=== PATIENT | female | born 1960 | race Two or more races ===

== ENCOUNTER 2017-11-03 17:43 | Inpatient (IN) | payer MEDICAID ==
[~2017-11-03] VITALS: Ht 160 cm; Wt 57.0 kg
[2017-11-03] MEDS ORDERED: RISP.5 PO (19:04)
[2017-11-03 19:14] LABS: BASOPHILS % (AUTO) 0.8 % (0.0-2.0); HEMATOCRIT 41.8 % (41-53); HEMOGLOBIN 14.5 g/dL (13.5-17.5); LYMPHOCYTES # (AUTO) 1.8 K/uL (1.0-4.8); LYMPHOCYTES % (AUTO) 26.8 % (22.0-44.0); MEAN CORPUSCULAR HEMOGLOBIN 28.2 pg (26.0-34.0); MEAN CORPUSCULAR HGB CONC 34.6 G/dL (31.0-37.0); MEAN CORPUSCULAR VOLUME 82 fL (80-100); MONOCYTES # (AUTO) 0.5 K/uL (0.1-1.0); MONOCYTES % (AUTO) 7.5 % (2.0-9.0); NEUTROPHILS # (AUTO) 4.3 K/uL (1.8-7.7); NEUTROPHILS % (AUTO) 62.9 % (40.0-70.0); PLATELET COUNT (AUTO) 211 K/uL (150-450); RED BLOOD CELL COUNT(AUTO) 5.12 MIL/uL (4.50-5.90)
[2017-11-03 19:32] LABS: ANION GAP 3 mmol/L (8-16); CALCIUM, TOTAL 9.3 mg/dL (8.8-10.5); CARBON DIOXIDE 32 mmol/L (22-29); CHLORIDE 103 mmol/L (98-107); CREATININE 0.87 mg/dL (0.60-1.30); GLOMERULAR FILTR. RATE CALC > 60 mL/min (>60); GLUCOSE,RANDOM 95 mg/dL (70-110); POTASSIUM 3.5 mmol/L (3.5-5.1); SODIUM SERUM 138 mmol/L (136-145); UREA NITROGEN, BLOOD 19 mg/dL (7-18)
[2017-11-03 19:37] LABS: AMPHET/METH SCREEN,URINE POSITIVE (NEGATIVE); BARBITURATE SCREEN, URINE NEGATIVE (NEGATIVE); BENZODIAZEPINES SCREEN,URINE NEGATIVE (NEGATIVE); CANNABINOID SCREEN,URINE NEGATIVE (NEGATIVE); COCAINE SCREEN,URINE NEGATIVE (NEGATIVE); METHADONE SCREEN, URINE NEGATIVE (NEGATIVE); OPIATE SCREEN,URINE NEGATIVE (NEGATIVE)
[2017-11-03 19:38] LABS: PHENCYCLIDINE SCREEN,URINE NEGATIVE (NEGATIVE)
[2017-11-03 19:38] LABS: ALANINE AMINOTRANSFERASE 42 U/L (12-78); ALBUMIN 3.6 g/dL (3.4-5.0); ALKALINE PHOSPHATASE 112 U/L (46-116); ASPARTATE AMINOTRANSFERASE 22 U/L (15-37); BILIRUBIN,TOTAL 0.6 mg/dL (0.1-1.0); TOTAL PROTEIN, SERUM 6.9 g/dL (6.4-8.2)
[2017-11-03] MEDS ORDERED: HALOPERIDOL 5 MG TABLET PO PRN (21:15)
[2017-11-03] MEDS ORDERED: ZOLPIDEM TARTRATE 10 MG TABLET PO PRN (21:15)
[2017-11-04 02:00] VITALS: BP 106/89
[2017-11-04] MEDS ORDERED: PNEUMOCOCCAL VACCINE POLYVALENT 0.5 ML VIAL [PPSV23] IM ONE (02:00)
[2017-11-04 03:08] LABS: APPEARANCE,URINE CLOUDY (CLEAR); BILIRUBIN,URINE NEGATIVE (NEGATIVE); GLUCOSE, URINE (UA) NEGATIVE (NEGATIVE); KETONES,URINE TRACE mg/dL (NEGATIVE); LEUKOCYTE ESTERASE ,URINE SMALL (NEGATIVE); NITRATE,URINE NEGATIVE (NEGATIVE); OCCULT BLOOD,URINE TRACE (NEGATIVE); PROTEIN,URINE NEGATIVE (NEGATIVE); UROBILINOGEN,URINE 0.2 mg/dL (<=1.0)
[2017-11-04 03:28] LABS: BACTERIA,URINE Few /HPF (None Seen); CALCIUM OXALATE CRYSTALS,UR Rare /LPF (None Seen); SQUAMOUS EPITHELIAL CELL,UR Few /LPF (None Seen)
[2017-11-04] MEDS ORDERED: MAGNESIUM HYDROXIDE SUSPENSION 30 ML UDCUP PO PRN (06:45)
[2017-11-04] MEDS ORDERED: MAG HYDROX/AL HYDROX/SIMETH ES 30 ML SUSPENSION UDCUP PO PRN (06:45)
[2017-11-04] MEDS ORDERED: PETROLATUM,WHITE 71 GM JELLY TP PRN (06:45)
[2017-11-04] MEDS ORDERED: ONDANSETRON HCL 4 MG TABLET PO PRN (06:45)
[2017-11-04] MEDS ORDERED: DOCUSATE SODIUM 100 MG CAPSULE PO PRN (06:45)
[2017-11-04] MEDS ORDERED: ACETAMINOPHEN 325 MG TABLET PO PRN (06:45)
[2017-11-04] MEDS ORDERED: ALBUTEROL SULFATE HFA 90 MCG/PUFF 8 GM INHALER IH PRN (06:45)
[2017-11-04] MEDS ORDERED: CloNIDine HCL 0.1 MG TABLET PO PRN (06:45)
[2017-11-04] MEDS ORDERED: LOPERAMIDE HCL 2 MG CAPSULE PO PRN (06:45)
[2017-11-04 07:28] LABS: CHOL/HDL RATIO 2.7 (3.9-5.7)
[2017-11-04 10:08] VITALS: BP 134/77
[2017-11-04] MEDS: CIPROFLOXACIN HCL 250 MG TABLET PO SCH (17:03)
[2017-11-04] MEDS: RisperiDONE 0.5 MG TABLET PO SCH (17:03)
[2017-11-04 17:22] VITALS: BP 147/75
[2017-11-05] MEDS: LORazepam 2 MG TABLET PO PRN (04:43)
[2017-11-05 06:43] VITALS: BP 143/81
[2017-11-05 07:08] LABS: HEMOGLOBIN A1C 5.7 % (4.5-6.2)
[2017-11-05 07:37] LABS: THYROID STIMULATING HORMONE 1.96 uIU/mL (0.36-3.74)
[2017-11-05 08:00] VITALS: BP 153/84
[2017-11-05] MEDS: RisperiDONE 0.5 MG TABLET PO SCH ×2 (10:33→16:15)
[2017-11-05] MEDS: CIPROFLOXACIN HCL 250 MG TABLET PO SCH ×2 (10:33→16:15)
[2017-11-05 17:02] VITALS: BP 137/80
[2017-11-06 08:00] VITALS: BP 149/99
[2017-11-06] MEDS: CIPROFLOXACIN HCL 250 MG TABLET PO SCH ×2 (10:04→16:38)
[2017-11-06] MEDS: RisperiDONE 0.5 MG TABLET PO SCH ×2 (10:04→16:38)
[2017-11-06 17:05] VITALS: BP 100/74
[2017-11-07 10:01] VITALS: BP 146/83
[2017-11-07] MEDS: IBUPROFEN 400 MG TABLET PO PRN (10:01)
[2017-11-07] MEDS: LORazepam 2 MG TABLET PO PRN (10:01)
[2017-11-07] MEDS: RisperiDONE 0.5 MG TABLET PO SCH ×2 (10:01→17:20)
[2017-11-07] MEDS: CIPROFLOXACIN HCL 250 MG TABLET PO SCH ×2 (10:01→17:20)
[2017-11-07 17:04] VITALS: BP 144/80
[2017-11-08 01:15] VITALS: BP_SYST 121; BP_SYST 128; BP_DIAS 91
[2017-11-08] MEDS: IBUPROFEN 400 MG TABLET PO PRN (01:18)
[2017-11-08 08:30] VITALS: BP 150/105
[2017-11-08] MEDS: RisperiDONE 0.5 MG TABLET PO SCH ×2 (09:08→17:08)
[2017-11-08] MEDS: CIPROFLOXACIN HCL 250 MG TABLET PO SCH ×2 (09:09→17:08)
[2017-11-08] MEDS: LORazepam 2 MG TABLET PO PRN (09:10)
[2017-11-08 18:48] VITALS: BP 131/81
[2017-11-09 02:39] VITALS: BP 118/89
[2017-11-09] MEDS: LORazepam 2 MG TABLET PO PRN ×3 (02:42→21:28)
[2017-11-09] MEDS: IBUPROFEN 400 MG TABLET PO PRN ×2 (02:42→13:43)
[2017-11-09 08:24] VITALS: BP 145/84
[2017-11-09] MEDS: RisperiDONE 0.5 MG TABLET PO SCH ×2 (09:02→16:09)
[2017-11-09] MEDS: CIPROFLOXACIN HCL 250 MG TABLET PO SCH ×2 (09:02→16:09)
[2017-11-09] MEDS: NICOTINE 21 MG/24 HOUR PATCH TD SCH (16:08)
[2017-11-09 19:53] VITALS: BP 123/73
[2017-11-10 00:28] VITALS: BP 155/91
[2017-11-10] MEDS: NICOTINE 21 MG/24 HOUR PATCH TD SCH (08:21)
[2017-11-10] MEDS: RisperiDONE 0.5 MG TABLET PO SCH ×2 (08:21→17:30)
[2017-11-10] MEDS: CIPROFLOXACIN HCL 250 MG TABLET PO SCH ×2 (08:21→17:30)
[2017-11-10 09:15] VITALS: BP 120/83
[2017-11-10] MEDS: LORazepam 2 MG TABLET PO PRN ×2 (10:19→19:45)
[2017-11-10 20:55] VITALS: BP 123/81
[2017-11-11] MEDS: LORazepam 2 MG TABLET PO PRN ×2 (03:18→19:06)
[2017-11-11 04:39] VITALS: BP 148/100
[2017-11-11 08:15] VITALS: BP 138/98
[2017-11-11] MEDS: RisperiDONE 0.5 MG TABLET PO SCH ×2 (09:09→17:16)
[2017-11-11] MEDS: NICOTINE 21 MG/24 HOUR PATCH TD SCH (09:09)
[2017-11-12] MEDS: LORazepam 2 MG TABLET PO PRN (00:37)
[2017-11-12 03:59] VITALS: BP 133/84
[2017-11-12 08:30] VITALS: BP 152/88
[2017-11-12] MEDS: RisperiDONE 0.5 MG TABLET PO SCH (10:00)
[2017-11-12] MEDS: NICOTINE 21 MG/24 HOUR PATCH TD SCH (10:07)
== END 2017-11-12 16:00 | disposition home or self-care (01) | DRG 750 ==
LOC: EMS 17:44 → EDSEX 17:44 → 3EI 11-04 00:14
PROVIDERS: ADMIT Psychiatry & Neurology Child & Adolescent Psychiatry; ATTEND Psychiatry & Neurology Child & Adolescent Psychiatry
DX: F25.1 Schizoaffective disorder, depressive type (principal); R45.851 Suicidal ideations; F23 Brief psychotic disorder; I10 Essential (primary) hypertension; J45.909 Unspecified asthma, uncomplicated; Z28.21 Immunization not carried out because of patient refusal; F41.9 Anxiety disorder, unspecified; N39.0 Urinary tract infection, site not specified; F17.200 Nicotine dependence, unspecified, uncomplicated; F19.10 Other psychoactive substance abuse, uncomplicated; Z71.6 Tobacco abuse counseling
CPT/HCPCS: 83036; 84443; 87086; 99285; 99406; G0480

== ENCOUNTER 2017-11-15 19:12 | Emergency (ER) | payer MEDICAID ==
[~2017-11-15] VITALS: Ht 162.6 cm; Wt 56.8 kg
[~2017-11-15 19:12] MED LIST: RISP.5 PO
[2017-11-15 20:34] LABS: HEMATOCRIT 39.2 % (36-46); HEMOGLOBIN 13.6 g/dL (12.0-16.0); LYMPHOCYTES # (AUTO) 2.8 K/uL (1.0-4.8); LYMPHOCYTES % (AUTO) 32.4 % (22.0-44.0); MEAN CORPUSCULAR HEMOGLOBIN 28.2 pg (26.0-34.0); MEAN CORPUSCULAR HGB CONC 34.8 G/dL (31.0-37.0); MEAN CORPUSCULAR VOLUME 81 fL (80-100); MONOCYTES % (AUTO) 11.8 % (2.0-9.0); NEUTROPHILS # (AUTO) 4.5 K/uL (1.8-7.7); NEUTROPHILS % (AUTO) 51.8 % (40.0-70.0); PLATELET COUNT (AUTO) 243 K/uL (150-450); RED BLOOD CELL COUNT(AUTO) 4.83 MIL/uL (4.00-5.20); RED CELL DISTRIBUTION WIDTH 14.1 % (11.5-14.5)
[2017-11-15 20:42] LABS: ANION GAP 9 mmol/L (8-16); CALCIUM, TOTAL 9.3 mg/dL (8.8-10.5); CARBON DIOXIDE 29 mmol/L (22-29); CHLORIDE 101 mmol/L (98-107); GLOMERULAR FILTR. RATE CALC > 60 mL/min (>60); GLUCOSE,RANDOM 112 mg/dL (70-110); POTASSIUM 3.3 mmol/L (3.5-5.1); SODIUM SERUM 139 mmol/L (136-145); UREA NITROGEN, BLOOD 16 mg/dL (7-18)
[2017-11-15 20:48] LABS: ALANINE AMINOTRANSFERASE 166 U/L (12-78); ALBUMIN 3.4 g/dL (3.4-5.0); ALKALINE PHOSPHATASE 151 U/L (46-116); ASPARTATE AMINOTRANSFERASE 36 U/L (15-37); BILIRUBIN,TOTAL 0.3 mg/dL (0.1-1.0); TOTAL PROTEIN, SERUM 6.9 g/dL (6.4-8.2)
[2017-11-15] MEDS ORDERED: LORazepam 2 MG TABLET PO ONE (21:45)
[2017-11-15] MEDS ORDERED: RisperiDONE 1 MG TABLET PO ONE (21:45)
[2017-11-16 03:42] VITALS: BP 125/88
== END 2017-11-16 03:43 | disposition home or self-care (01) ==
LOC: EMS 19:14
DX: F25.9 Schizoaffective disorder, unspecified (principal); F15.10 Other stimulant abuse, uncomplicated; J45.909 Unspecified asthma, uncomplicated; I10 Essential (primary) hypertension; Z59.0 Homelessness
CPT/HCPCS: 36415; 80053; 85025; 99284; G0480